=== PATIENT | male | born 1980 | race Caucasian/White ===

== ENCOUNTER 2018-11-02 14:47 | Emergency (ER) | payer SELFPAY ==
[2018-11-02 14:58] VITALS: TEMP 98.1
[2018-11-02] MEDS ORDERED: Sodium Chloride 0.9% 1,000 ML IV STA (15:04)
--- NOTE | 2018-11-02 15:21 | ED PDOC ---
Upper Extremity Pain/Injury Time Seen by Provider: 11/02/18 14:56 Chief Complaint (Nursing): Finger,Hand,&Wrist History Per: Patient Onset/Duration Of Symptoms: Hrs (1) Current Symptoms Are (Timing): Still Present Additional Complaint(s): Avulsion of distal 1/3 distal phalanx left hand, cutting with knife. Pt did not bring in avulsed part. Past Medical History Vital Signs: Last Vital Signs Temp 98.1 F 11/02/18 14:54 Pulse 120 H 11/02/18 14:54 Resp 20 11/02/18 14:54 BP 156/100 H 11/02/18 14:54 Pulse Ox 100 11/02/18 14:54 - Medical History PMH: No Chronic Diseases - Family History Family History: States: Unknown Family Hx - Home Medications Home Medications: Ambulatory Orders Medication Instructions Recorded No Known Home Med 11/02/18 - Allergies Allergies/Adverse Reactions: Allergies Allergy/AdvReac Type Severity Reaction Status Date / Time No Known Allergies Allergy Verified 11/02/18 14:54 Review of Systems Musculoskeletal: Positive for: Hand Pain Neurological: Negative for: Weakness, Numbness Physical Exam - Physical Exam Appears: Positive for: Non-toxic, No Acute Distress Extremity: Positive for: Other (Left hand, middle finger, distal phalanx, avulsed distal 1/3 with bone exposed) - ECG O2 Sat by Pulse Oximetry: 100 Medical Decision Making Medical Decision Making: Discussed with Dr. Hendrickson, will be in to see pt after finishing OR case Disposition - Clinical Impression Clinical Impression: Fingernail avulsion, partial - Patient ED Disposition Is Patient to be Admitted: Transfer of Care - Disposition Disposition: Routine/Home Disposition Time: 19:00 Condition: FAIR Forms: [employer] ([place]) Patient Signed Over To: Jon Manrique (Pending plastic/hand eval)
[2018-11-02] MEDS ORDERED: Tdap Vaccine 0.5 ml Vial (10-64 yrs) IM ONE ×2 (15:27→15:35)
[2018-11-02] MEDS ORDERED: Vancomycin 1 g Inj ONE (15:35)
--- NOTE | 2018-11-02 16:16 | RAD ---
PROCEDURE: Left Hand Radiographs. HISTORY: trauma 3rd digit COMPARISON: None. FINDINGS: BONES: Three views of the left hand were performed for trauma. There is evidence of avulsion of the distal aspect of the distal phalanx of the left 3rd finger with small fragments seen in the soft tissues. Overlying bandage limits evaluation. No dislocation of the DIP joint is seen. Remainder of the phalanges are intact as well as the metacarpals. JOINTS: See above. SOFT TISSUES: See above. OTHER FINDINGS: None. IMPRESSION: Avulsion of the distal phalanx of the left 3rd finger.
--- NOTE | 2018-11-02 19:35 | ED PDOC ---
- ECG O2 Sat by Pulse Oximetry: 100 (RA) Pulse Ox Interpretation: Normal Medical Decision Making Medical Decision Making: Time: 1899 --Patient signed out to this provider by Dr. Gracia, pending plastic evaluation and reevaluation. Time: 2050 --Dr. Hendrickson is at bedside to evaluate patient Time: 2126 --As per Dr. Hendrickson, this wound is not consistent with amputation by knife. Patient admitted to Dr. Hendrickson that injury was from a dog bite. Dr. Hendrickson has made arrangements to follow up with him on Sunday. As per Dr. Hendrickson, patient is a candidate for skin graft. Due to nature of wound, he will need to be evaluated at a later time outpatient. Patient to be discharged home with Augmentin and Tramadol. Diagnosis traumatic avulsion of fingertip. Scribe Attestation: Documented by Rosalba Jensen, acting as a scribe for Jon Manrique MD. Provider Scribe Attestation: All medical record entries made by the Scribe were at my direction and personally dictated by me. I have reviewed the chart and agree that the record accurately reflects my personal performance of the history, physical exam, medical decision making, and the department course for this patient. I have also personally directed, reviewed, and agree with the discharge instructions and disposition. Disposition - Clinical Impression Clinical Impression: Finger amputation, traumatic - POA Present On Arrival: None - Disposition Referrals: Rodrick Hendrickson MD [Medical Doctor] - Disposition: Routine/Home Disposition Time: 21:27 Condition: STABLE Prescriptions: Amoxicillin/Clavulanate [Augmentin 875 MG-125 MG] 1 tab PO BID #14 tab traMADol [Ultram] 50 mg PO Q6 PRN #10 tab PRN Reason: pain Instructions: Amputation of the Finger or Fingertip Forms: [employer] ([place])
[2018-11-02] MEDS ORDERED: Povidone Iodine Topical 10% Sol ONE (20:38)
[2018-11-02] MEDS ORDERED: Lidocaine 2% MPF (5 ml) Inj ONE ×2 (20:38→20:39)
[2018-11-02] MEDS ORDERED: Absorbable Gelatin Sponge Size 12-7 ONE (20:40)
[2018-11-02 21:45] VITALS: BP 137/84; PULSE 78; RESP 18
[2018-11-03 05:04] VITALS: O2SAT 100
== END 2018-11-02 21:44 | disposition home or self-care (01) ==
LOC: H.ER 14:47
DX: S61.309A Unspecified open wound of unspecified finger with damage to nail, initial encounter (principal); W26.0XXA Contact with knife, initial encounter; Z23 Encounter for immunization
CPT/HCPCS: 73130; 87040; 90471; 90715; 96361; 96374; 96375; 99284; J1885; J2270; J7030